=== PATIENT | female | born 1960 | race American Indian/Alaskan Native ===

== ENCOUNTER 2016-05-12 13:31 | Emergency (ER) | payer MEDICAID ==
[2016-05-12] MEDS ORDERED: ROBITUSSIN PO ONE (23:35)
[2016-05-12] MEDS ORDERED: ROBITUSSIN AC PO ONE (23:36)
[2016-05-12] MEDS ORDERED: MOTRIN PO ONE (23:36)
[2016-05-12] MEDS ORDERED: DELTASONE PO ONE (23:36)
[2016-05-12] MEDS ORDERED: DUONEB 0.5 MG-3 MG/3 ML SOLN IH ONE (23:37)
--- NOTE | 2016-05-13 01:41 | Emergency Department Report ---
- General Chief Complaint: Upper Respiratory Infection Stated Complaint: CONGESTED/COLD Time Seen by Provider: 05/12/16 23:13 Source: patient Mode of arrival: Ambulatory Limitations: No Limitations - History of Present Illness Initial Comments: 55-year-old female past medical history denies presents with complaint of 2 months of dry cough. Denies fever or chills no lower extremity swelling no dyspnea on exertion denies any chest pain. Denies any recent travel no pleuritic chest pain whatsoever, denies any nocturnal dyspnea. States she has tried [id number] cold medicines with minimal relief of her cough. MD Complaint: cough Onset/Timin -: month(s) Severity: moderate Associated Symptoms: denies other symptoms Treatments Prior to Arrival: "cold medicine" - Related Data Home Medications Medication Instructions Recorded Confirmed Last Taken Zoloft 12/11/14 12/11/14 07/14/15 traZODone 12/11/14 12/11/14 07/14/15 Previous Rx's Medication Instructions Recorded Last Taken Type ALBUTEROL Inhaler [Proair] 1 puff IH Q4H PRN #1 inha 05/13/16 Unknown Rx Azithromycin [Zithromax Z-BRADFORD] 250 mg PO QDAY #6 tablet 05/13/16 Unknown Rx guaiFENesin/CODEINE [Robitussin AC] 5 ml PO Q8H PRN #1 oral.liqd 05/13/16 Unknown Rx predniSONE [Deltasone] 40 mg PO QDAY #10 tab 05/13/16 Unknown Rx Allergies Allergy/AdvReac Type Severity Reaction Status Date / Time No Known Allergies Allergy Unverified 12/11/14 10:38 ED Review of Systems ROS: Stated complaint: CONGESTED/COLD Other details as noted in HPI Constitutional: denies: chills, fever Eyes: denies: eye pain, eye discharge, vision change ENT: denies: ear pain, throat pain Respiratory: cough. denies: shortness of breath, wheezing Cardiovascular: denies: chest pain, palpitations Endocrine: no symptoms reported Gastrointestinal: denies: abdominal pain, nausea, diarrhea Genitourinary: denies: urgency, dysuria, discharge Musculoskeletal: denies: back pain, joint swelling, arthralgia Skin: denies: rash, lesions Neurological: denies: headache, weakness, paresthesias Psychiatric: denies: anxiety, depression Hematological/Lymphatic: denies: easy bleeding, easy bruising ED Past Medical Hx - Past Medical History Hx Hypertension: Yes (patient states she is not taking any medication for this) Hx Arthritis: Yes Hx Psychiatric Treatment: Yes (depression treated by [facility] in [place], [place]) Additional medical history: hepatitis B - Social History Smoking Status: Never Smoker Substance Use Type: None - Medications Home Medications: Home Medications Medication Instructions Recorded Confirmed Last Taken Type Zoloft 12/11/14 12/11/14 07/14/15 History traZODone 12/11/14 12/11/14 07/14/15 History ALBUTEROL Inhaler [Proair] 1 puff IH Q4H PRN #1 inha 05/13/16 Unknown Rx Azithromycin [Zithromax Z-BRADFORD] 250 mg PO QDAY #6 tablet 05/13/16 Unknown Rx guaiFENesin/CODEINE [Robitussin AC] 5 ml PO Q8H PRN #1 oral.liqd 05/13/16 Unknown Rx predniSONE [Deltasone] 40 mg PO QDAY #10 tab 05/13/16 Unknown Rx ED Physical Exam - General Limitations: No Limitations General appearance: alert, in no apparent distress - Head Head exam: Present: atraumatic, normocephalic - Eye Eye exam: Present: normal appearance, PERRL, EOMI - ENT ENT exam: Present: mucous membranes moist - Neck Neck exam: Present: normal inspection - Respiratory Respiratory exam: Present: normal lung sounds bilaterally. Absent: respiratory distress - Cardiovascular Cardiovascular Exam: Present: regular rate, normal rhythm. Absent: systolic murmur, diastolic murmur, rubs, gallop - GI/Abdominal GI/Abdominal exam: Present: soft, normal bowel sounds - Extremities Exam Extremities exam: Present: normal inspection - Back Exam Back exam: Present: normal inspection - Neurological Exam Neurological exam: Present: alert, oriented X3 - Psychiatric Psychiatric exam: Present: normal affect, normal mood - Skin Skin exam: Present: warm, dry, intact, normal color. Absent: rash ED Course Vital Signs 05/12/16 05/13/16 05/13/16 13:46 00:54 01:07 Temperature 98.6 F Pulse Rate 73 Pulse Rate [ 59 L Throughout] Respiratory 20 22 Rate Respiratory 16 Rate [ Throughout] Blood Pressure 146/76 Blood Pressure [Right] O2 Sat by Pulse 97 Oximetry 05/13/16 05/13/16 01:23 02:14 Temperature 97.9 F Pulse Rate 77 Pulse Rate [ 54 L Throughout] Respiratory 18 Rate Respiratory 16 Rate [ Throughout] Blood Pressure Blood Pressure 143/93 [Right] O2 Sat by Pulse 98 Oximetry ED Medical Decision Making - Medical Decision Making A/P: Bronchitis 1-Z-Bradford, pro-air inhaler, prednisone short course, guaifenesin-codeine short course 2-follow-up with primary care doctor 3-I advised patient to return to the ED if she develops any chest pain or palpitations associated with cough and/or any lower extremity swelling or dyspnea on exertion Critical care attestation.: If time is entered above; I have spent that time in minutes in the direct care of this critically ill patient, excluding procedure time. ED Disposition Clinical Impression: Bronchitis Disposition: DISCHARGED TO HOME OR SELFCARE Is pt being admited?: No Does the pt Need Aspirin: No Condition: Stable Instructions: Chronic Bronchitis (ED), Acute Bronchitis (ED) Prescriptions: predniSONE [Deltasone] 40 mg PO QDAY #10 tab ALBUTEROL Inhaler [Proair] 1 puff IH Q4H PRN #1 inha PRN Reason: Cough guaiFENesin/CODEINE [Robitussin AC] 5 ml PO Q8H PRN #1 oral.liqd PRN Reason: Cough Azithromycin [Zithromax Z-BRADFORD] 250 mg PO QDAY #6 tablet Referrals: PRIMARY MD TJ [Primary Care Provider] - 3-5 Days [facility] [Outside] - 3-5 Days TORSTEN LÓPEZ MD [Staff Physician] - 3-5 Days Time of Disposition: 01:46
[2016-05-13 02:15] VITALS: BP 143/93
--- NOTE | 2016-05-13 07:26 | XRay Report ---
CHEST 2 VIEWS INDICATION: Worsening cough. COMPARISON: 01/18/2009 FINDINGS: PA and lateral chest radiographs again demonstrate normal cardiomediastinal silhouette and slight aortic knob calcifications. New mild eventration/elevation of the right hemidiaphragm and slight bibasilar atelectasis. No pleural effusions or CHF. Unremarkable bones. CONCLUSION: No significant acute chest process with few incidental findings, as above. Thank you for the opportunity to participate in this patient's care.
== END 2016-05-13 02:13 | disposition home or self-care (01) ==
LOC: ED 13:31
DX: J40 Bronchitis, not specified as acute or chronic (principal); I10 Essential (primary) hypertension; M19.90 Unspecified osteoarthritis, unspecified site; F32.9 Major depressive disorder, single episode, unspecified; Z86.19 Personal history of other infectious and parasitic diseases
CPT/HCPCS: 71020; 94640; 99283; J7512

== ENCOUNTER 2016-06-02 11:48 | Outpatient (CLI) | payer MEDICAID ==
--- NOTE | 2016-06-02 12:47 | XRay Report ---
LEFT KNEE RADIOGRAPHS INDICATION: Left knee pain and swelling. COMPARISON: None similar. FINDINGS: AP, lateral and oblique left knee radiographs demonstrate intact articulation. Tibial spines and medial corner degenerative spurring. Slight suprapatellar effusion. CONCLUSION: Mild left knee degenerative changes without acute bony abnormality, as described. Thank you for the opportunity to participate in this patient's care.
== END 2016-06-02 11:49 | disposition home or self-care (01) ==
LOC: XRAY 11:48
PROVIDERS: ATTEND Internal Medicine
DX: M25.462 Effusion, left knee (principal)

== ENCOUNTER 2016-12-01 13:24 | Emergency (ER) | payer MEDICAID ==
--- NOTE | 2016-12-01 17:57 | Emergency Department Report ---
- General Chief complaint: Skin/Abscess/Foreign Body Stated complaint: SKIN PROBLEM Time Seen by Provider: 12/01/16 16:29 Source: patient Mode of arrival: Ambulatory Limitations: No Limitations - History of Present Illness Initial comments: 56F PMH Depression p/w c/o intermittent episodes of "heavy sweating with body odor" for several months MD complaint: other - Related Data Home Medications Medication Instructions Recorded Confirmed Last Taken Zoloft 12/11/14 12/11/14 07/14/15 [email or web address] 12/11/14 12/11/14 07/14/15 Previous Rx's Medication Instructions Recorded Last Taken Type ALBUTEROL Inhaler [Proair] 1 puff IH Q4H PRN #1 inha 05/13/16 Unknown Rx Azithromycin [Zithromax Z-BRADFORD] 250 mg PO QDAY #6 tablet 05/13/16 Unknown Rx guaiFENesin/CODEINE [Robitussin AC] 5 ml PO Q8H PRN #1 oral.liqd 05/13/16 Unknown Rx predniSONE [Deltasone] 40 mg PO QDAY #10 tab 05/13/16 Unknown Rx Allergies Allergy/AdvReac Type Severity Reaction Status Date / Time No Known Allergies Allergy Verified 12/01/16 13:33 Abscess Boil HPI - HPI Chief Complaint: Skin/Abscess/Foreign Body Stated Complaint: SKIN PROBLEM Time Seen by Provider: 12/01/16 16:29 Home Medications: Home Medications Medication Instructions Recorded Confirmed Last Taken Zoloft 12/11/14 12/11/14 07/14/15 traZODone 12/11/14 12/11/14 07/14/15 Previous Rx's Medication Instructions Recorded Last Taken Type ALBUTEROL Inhaler [Proair] 1 puff IH Q4H PRN #1 inha 05/13/16 Unknown Rx Azithromycin [Zithromax Z-BRADFORD] 250 mg PO QDAY #6 tablet 05/13/16 Unknown Rx guaiFENesin/CODEINE [Robitussin AC] 5 ml PO Q8H PRN #1 oral.liqd 05/13/16 Unknown Rx predniSONE [Deltasone] 40 mg PO QDAY #10 tab 05/13/16 Unknown Rx Allergies/Adverse Reactions: Allergies Allergy/AdvReac Type Severity Reaction Status Date / Time No Known Allergies Allergy Verified 12/01/16 13:33 ED Review of Systems ROS: Stated complaint: SKIN PROBLEM Other details as noted in HPI ED Past Medical Hx - Past Medical History Hx Hypertension: Yes (patient states she is not taking any medication for this) Hx Arthritis: Yes Hx Psychiatric Treatment: Yes (depression treated by [facility] in [place], [place]) Additional medical history: hepatitis B - Social History Smoking Status: Never Smoker Substance Use Type: None - Medications Home Medications: Home Medications Medication Instructions Recorded Confirmed Last Taken Type Zoloft 12/11/14 12/11/14 07/14/15 History traZODone 12/11/14 12/11/14 07/14/15 History ALBUTEROL Inhaler [Proair] 1 puff IH Q4H PRN #1 inha 05/13/16 Unknown Rx Azithromycin [Zithromax Z-BRADFORD] 250 mg PO QDAY #6 tablet 05/13/16 Unknown Rx guaiFENesin/CODEINE [Robitussin AC] 5 ml PO Q8H PRN #1 oral.liqd 05/13/16 Unknown Rx predniSONE [Deltasone] 40 mg PO QDAY #10 tab 05/13/16 Unknown Rx ED Physical Exam - General Limitations: No Limitations ED Course Vital Signs 12/01/16 13:33 Temperature 97.9 F Pulse Rate 71 Respiratory 16 Rate Blood Pressure 151/84 O2 Sat by Pulse 100 Oximetry ED Medical Decision Making - Lab Data Result diagrams: 12/01/16 18:15 12/01/16 18:15 - Medical Decision Making A/P: Complaint of sweating with body odor 1-CBC, TSH, free T4, BMP within normal limits 2-fingerstick glucose unremarkable 3-physical exam reveals no skin lesions 4-I discussed with patient that her intermittent episodes of sweating could possibly be associated with her use of Zoloft. When I referenced Zoloft side effects on up-to-date.Duable Chinese sweating was one of the more common side effects listed. I advised patient to follow up with her psychiatrist. Patient has no complaints of chest pain shortness of breath palpitations or weakness or abdominal pain associated directly with her episodes of sweating. Although patient is concerned that she has a foul body odor she does not have a foul body odor on physical examination . I advised patient to stay well-hydrated and to practice daily skin care 5- case discussed with Dr. Contreras Critical care attestation.: If time is entered above; I have spent that time in minutes in the direct care of this critically ill patient, excluding procedure time. ED Disposition Clinical Impression: Sweating, Body odor Disposition: - TO HOME OR SELFCARE Is pt being admited?: No Does the pt Need Aspirin: No Condition: Stable Referrals: [facility] [Provider Group] - 3-5 Days [facility] [Provider Group] - 3-5 Days Time of Disposition: 19:08
[2016-12-01 18:34] LABS: Basophils % (Auto) 0.4 % (0.0-1.8); Eosinophils % (Auto) 6.6 % (0.0-4.3); Hematocrit 38.4 % (30.3-42.9); Hemoglobin 12.4 gm/dl (10.1-14.3); Mean Corpuscular HGB Conc 32 % (30-34); Mean Corpuscular Hemoglobin 28 pg (28-32); Mean Corpuscular Volume 86 fl (79-97); Platelet Count 294 K/mm3 (140-440); Red Blood Count 4.46 M/mm3 (3.65-5.03); Red Cell Distribution Width 17.4 % (13.2-15.2); White Blood Count 6.9 K/mm3 (4.5-11.0)
[2016-12-01 18:51] LABS: Anion Gap 18 mmol/L; BUN/Creatinine Ratio 14.54; Blood Urea Nitrogen 16 mg/dL (7-17); Calcium 9.1 mg/dL (8.4-10.2); Carbon Dioxide 24 mmol/L (22-30); Chloride 98.9 mmol/L (98-107); Glucose 91 mg/dL (65-100); Potassium 3.8 mmol/L (3.6-5.0); Sodium 137 mmol/L (137-145)
[2016-12-01 19:24] VITALS: BP 139/76
== END 2016-12-01 19:24 | disposition home or self-care (01) ==
LOC: ED 13:24
DX: R61 Generalized hyperhidrosis (principal); I10 Essential (primary) hypertension; M19.90 Unspecified osteoarthritis, unspecified site; F32.9 Major depressive disorder, single episode, unspecified
CPT/HCPCS: 36415; 80048; 82962; 84439; 84443; 85025; 99283

== ENCOUNTER 2017-10-01 16:05 | Emergency (ER) | payer MEDICAID ==
[2017-10-01 16:13] VITALS: BP 132/78
[2017-10-01] MEDS ORDERED: FLEXERIL ONE (20:41)
[2017-10-01] MEDS ORDERED: ULTRAM ONE (20:41)
[2017-10-01] MEDS ORDERED: FLEXERIL PO ONE (20:44)
[2017-10-01] MEDS ORDERED: ULTRAM PO ONE (20:44)
--- NOTE | 2017-10-01 21:13 | Emergency Department Report ---
ED Back Pain/Injury HPI - General Chief Complaint: Back Pain/Injury Stated Complaint: BACK PAIN Time Seen by Provider: 10/01/17 20:58 Source: patient Limitations: No Limitations - History of Present Illness Initial Comments: pt is a 57 y/o aaf who presents for left lower back pain after bending over and picking up "heavy" box 4 hrs ago, describes pain as 4/10 burning aching soreness exacerbated by bending and twisting relieved by rest, there is no numbness notingling no saddlle numbness no weakness no loss or decrease in bowel or bladder function Complaint: back injury Onset/Timin -: hour(s) Similar Symptoms Previously: Yes Place: home Radiation: left leg Severity: moderate Severity scale (0 -10): 4 Quality: burning Consistency: constant Improves With: other (rest ) Worsens With: movement, other (bending twisting) Context: while lifting, turning/twisting Associated Symptoms: denies: weakness, numbness, difficulty walking, difficulty urinating, incontinence, fever/chills - Related Data Home Medications Medication Instructions Recorded Confirmed Last Taken Zoloft 12/11/14 12/11/14 07/14/15 traZODone 12/11/14 12/11/14 07/14/15 Previous Rx's Medication Instructions Recorded Last Taken Type ALBUTEROL Inhaler [Proair] 1 puff IH Q4H PRN #1 inha 05/13/16 Unknown Rx Azithromycin [Zithromax Z-BRADFORD] 250 mg PO QDAY #6 tablet 05/13/16 Unknown Rx guaiFENesin/CODEINE [Robitussin AC] 5 ml PO Q8H PRN #1 oral.liqd 05/13/16 Unknown Rx predniSONE [Deltasone] 40 mg PO QDAY #10 tab 05/13/16 Unknown Rx Cyclobenzaprine [Flexeril] 10 mg PO BID PRN #20 tablet 10/01/17 Unknown Rx Menthol/Camphor [[place] 1 applicatio TP TID PRN #1 tube 10/01/17 Unknown Rx Ointment] Naproxen 500 mg PO BID PRN #30 tablet 10/01/17 Unknown Rx Allergies Allergy/AdvReac Type Severity Reaction Status Date / Time No Known Allergies Allergy Verified 12/01/16 13:33 ED Review of Systems ROS: Stated complaint: BACK PAIN Other details as noted in HPI Constitutional: denies: chills, fever Eyes: denies: eye pain, eye discharge, vision change ENT: denies: ear pain, throat pain Respiratory: denies: cough, shortness of breath, wheezing Cardiovascular: denies: chest pain, palpitations Endocrine: no symptoms reported Gastrointestinal: denies: abdominal pain, nausea, diarrhea Genitourinary: denies: urgency, dysuria, discharge Musculoskeletal: back pain, arthralgia, myalgia Skin: denies: rash, lesions Neurological: denies: headache, weakness, paresthesias Psychiatric: denies: anxiety, depression Hematological/Lymphatic: denies: easy bleeding, easy bruising ED Past Medical Hx - Past Medical History Previous Medical History?: Yes Hx Hypertension: Yes (patient states she is not taking any medication for this) Hx Arthritis: Yes Hx Psychiatric Treatment: Yes (depression treated by [facility] in [place], [place]) Additional medical history: hepatitis B - Surgical History Past Surgical History?: No - Social History Smoking Status: Never Smoker Substance Use Type: None - Medications Home Medications: Home Medications Medication Instructions Recorded Confirmed Last Taken Type Zoloft 12/11/14 12/11/14 07/14/15 History traZODone 12/11/14 12/11/14 07/14/15 History ALBUTEROL Inhaler [Proair] 1 puff IH Q4H PRN #1 inha 05/13/16 Unknown Rx Azithromycin [Zithromax Z-BRADFORD] 250 mg PO QDAY #6 tablet 05/13/16 Unknown Rx guaiFENesin/CODEINE [Robitussin AC] 5 ml PO Q8H PRN #1 oral.liqd 05/13/16 Unknown Rx predniSONE [Deltasone] 40 mg PO QDAY #10 tab 05/13/16 Unknown Rx Cyclobenzaprine [Flexeril] 10 mg PO BID PRN #20 tablet 10/01/17 Unknown Rx Menthol/Camphor [[place] 1 applicatio TP TID PRN #1 tube 10/01/17 Unknown Rx Ointment] Naproxen 500 mg PO BID PRN #30 tablet 10/01/17 Unknown Rx ED Physical Exam - General Limitations: No Limitations General appearance: alert, in no apparent distress - Head Head exam: Present: atraumatic, normocephalic - Eye Eye exam: Present: normal appearance - ENT ENT exam: Present: mucous membranes moist - Neck Neck exam: Present: normal inspection - Respiratory Respiratory exam: Present: normal lung sounds bilaterally. Absent: respiratory distress - Cardiovascular Cardiovascular Exam: Present: regular rate, normal rhythm. Absent: systolic murmur, diastolic murmur, rubs, gallop - GI/Abdominal GI/Abdominal exam: Present: soft, normal bowel sounds - Rectal Rectal exam: Present: deferred - Extremities Exam Extremities exam: Present: normal inspection, full ROM. Absent: tenderness - Back Exam Back exam: Present: tenderness (left lateral lumbar muscle pain to deep palpation), muscle spasm, paraspinal tenderness. Absent: CVA tenderness (R), CVA tenderness (L), vertebral tenderness, rash noted - Expanded Back Exam Expanded Back exam: Absent: saddle anesthesia Back exam: Positive Straight Leg Raise: Left, Negative Straight Leg Raising: Right - Neurological Exam Neurological exam: Present: alert, oriented X3, CN II-XII intact, normal gait, reflexes normal - Expanded Neurological Exam Expanded Patient oriented to: Present: person, place, time Speech: Present: fluid speech Cranial nerves: EOM's Intact: Normal, Gag Reflex: Normal, Tongue Deviation: Normal, Nystagmus: Normal, Facial Sensation: Normal Cerebellar function: Finger to Nose: Normal, Heel to Dumont: Normal, Romberg: Normal Upper motor neuron: Alberto Neglect: Normal, Pronator Drift: Normal, Babinski Sign : Normal, Sensory Extinction: Normal Sensory exam: Upper Extremity Light Touch: Normal, Upper Extremity Pin Prick: Normal, Upper Extremity Temperature: Normal, UE 2 Point Discrimination: Normal, Lower Extremity Light Touch: Normal, Lower Extremity Pin Prick: Normal, Lower Extremity Temperature: Normal, LE 2 Point Discrimination: Normal Motor strength exam: RUE: 5, LUE: 5, RLE: 5, LLE: 5 DTR: bicep (R): 2+, bicep (L): 2+, tricep (R): 2+, tricep (L): 2+, knee (R): 2+ , knee (L): 2+, ankle (R): 2+, ankle (L): 2+ Best Eye Response (Dejon): (4) open spontaneously Best Motor Response (Cary): (6) obeys commands Best Verbal Response ([place]): (5) oriented [place] Total: 15 - Psychiatric Psychiatric exam: Present: normal affect - Skin Skin exam: Present: warm, dry, intact, normal color ED Course Vital Signs 10/01/17 16:09 Temperature 97.9 F Pulse Rate 76 Respiratory 20 Rate Blood Pressure 132/78 O2 Sat by Pulse 99 Oximetry ED Medical Decision Making - Medical Decision Making pain improved with nsaid and mucle relxant rom improved pt is ambulatory gait is steady no symptom of caudi equina, plan nsaids muscle relaxant tiger balm back exercises moist heat therapy follow up with pcp in 2-3 days, pt verbalized agreement and understanding of same. pt for dc to home in stable condition at this time. Critical care attestation.: If time is entered above; I have spent that time in minutes in the direct care of this critically ill patient, excluding procedure time. ED Disposition Clinical Impression: Lumbar spine strain Qualifiers: Encounter type: initial encounter Qualified Code(s): S39.012A - Strain of muscle, fascia and tendon of lower back, initial encounter Disposition: DC-01 TO HOME OR SELFCARE Is pt being admited?: No Does the pt Need Aspirin: No Condition: Good Instructions: Muscle Strain (ED), Low Back Strain (ED), Core Strengthening Exercises (GEN) Prescriptions: Cyclobenzaprine [Flexeril] 10 mg PO BID PRN #20 tablet PRN Reason: Muscle Spasm Menthol/Camphor [[place] Ointment] 1 applicatio TP TID PRN #1 tube PRN Reason: Pain Naproxen 500 mg PO BID PRN #30 tablet PRN Reason: Pain , Severe (7-10) Referrals: PRIMARY CARE, [Primary Care Provider] - 3-5 Days SAMIRA KAUFMAN MD [Staff Physician] - 3-5 Days Forms: Work/School Release Form(ED) Time of Disposition: 21:18
== END 2017-10-01 21:20 | disposition home or self-care (01) ==
LOC: ED 16:05
DX: S39.012A Strain of muscle, fascia and tendon of lower back, initial encounter (principal); I10 Essential (primary) hypertension; X50.0XXA Overexertion from strenuous movement or load, initial encounter; Y93.89 Activity, other specified; Y92.89 Other specified places as the place of occurrence of the external cause; Y99.8 Other external cause status
CPT/HCPCS: 99282

== ENCOUNTER 2018-09-30 14:26 | Outpatient (CLI) | payer MEDICAID ==
--- NOTE | 2018-09-30 15:19 | Mammography Report ---
BILATERAL DIGITAL SCREENING MAMMOGRAM with CAD: 09/30/18 14:26:00 CLINICAL: Routine screening. COMPARISON:02/06/15 FINDINGS: The breasts are almost entirely fatty. No mass, architectural distortion or suspicious calcifications. IMPRESSION: No mammographic evidence of malignancy. BI-RADS CATEGORY: 1 - - Negative RECOMMENDATION: Routine mammographic screening in one year. COMMENT: Patient follow-up letters are generated by our [employer] application.
== END 2018-09-30 14:27 | disposition home or self-care (01) ==
LOC: MAMMO 14:26
PROVIDERS: ATTEND Internal Medicine
DX: Z12.31 Encounter for screening mammogram for malignant neoplasm of breast (principal); I10 Essential (primary) hypertension; E78.00 Pure hypercholesterolemia, unspecified; E66.9 Obesity, unspecified
CPT/HCPCS: 77067

== ENCOUNTER 2018-10-10 09:05 | Emergency (ER) | payer MEDICAID ==
[2018-10-10 09:58] LABS: Basophils % (Auto) 0.5 % (0.0-1.8); Eosinophils # (Auto) 0.3 K/mm3 (0.0-0.4); Hemoglobin 11.7 gm/dl (10.1-14.3); Lymphocytes # (Auto) 2.5 K/mm3 (1.2-5.4); Lymphocytes % (Auto) 44.5 % (13.4-35.0); Mean Corpuscular HGB Conc 33 % (30-34); Mean Corpuscular Volume 86 fl (79-97); Monocytes # (Auto) 0.7 K/mm3 (0.0-0.8); Monocytes % (Auto) 11.7 % (0.0-7.3); Platelet Count 278 K/mm3 (140-440); Red Blood Count 4.16 M/mm3 (3.65-5.03); Red Cell Distribution Width 15.6 % (13.2-15.2)
--- NOTE | 2018-10-10 10:17 | Emergency Department Report ---
ED Chest Pain HPI - General Chief Complaint: Chest Pain Stated Complaint: CHEST PAIN/BACK PAIN Time Seen by Provider: 10/10/18 09:57 Source: patient Mode of arrival: Ambulatory Limitations: No Limitations - History of Present Illness Initial Comments: 58-year-old -[place] female presents to the emergency department from home with complaint of a one-week history of chest pain, dizziness, shortness of breath. The chest pain is midsternal left-sided. The back pain is the upper middle back the patient is unsure whether it radiates from her chest or is a separate entity. She does admit to some shortness of breath, mild diaphoresis. She has not taken anything for her symptoms prior to presentation. She has a past medical history of high cholesterol. She denies any tobacco or illicit drug use. No recent travel or sick contacts at home. No significant family history of early cardiac disease. - Related Data Home Medications Medication Instructions Recorded Confirmed Last Taken Zoloft 12/11/14 12/11/14 07/14/15 traZODone 12/11/14 12/11/14 07/14/15 Previous Rx's Medication Instructions Recorded Last Taken Type ALBUTEROL Inhaler (OR & NICU) 1 puff IH Q4H PRN #1 inha 05/13/16 Unknown Rx [Proair] Azithromycin [Zithromax Z-BRADFORD] 250 mg PO QDAY #6 tablet 05/13/16 Unknown Rx guaiFENesin/CODEINE [Robitussin AC] 5 ml PO Q8H PRN #1 oral.liqd 05/13/16 Unknown Rx predniSONE [Deltasone] 40 mg PO QDAY #10 tab 05/13/16 Unknown Rx Cyclobenzaprine [Flexeril] 10 mg PO BID PRN #20 tablet 10/01/17 Unknown Rx Menthol/Camphor [[facility] [place] 1 applicatio TP TID PRN #1 tube 10/01/17 Unknown Rx Ointment] Naproxen 500 mg PO BID PRN #30 tablet 10/01/17 Unknown Rx Allergies Allergy/AdvReac Type Severity Reaction Status Date / Time No Known Allergies Allergy Verified 10/10/18 09:16 Heart Score - HEART Score History: Slightly suspicious EKG: Normal Age: 45-65 Risk factors: 1-2 risk factors Troponin: < normal limit HEART Score: 2 - Critical Actions Critical Actions: 0-3 pts:0.9-1.7%risk of adverse cardiac event.Candidate for discharge ED Review of Systems ROS: Stated complaint: CHEST PAIN/BACK PAIN Other details as noted in HPI Comment: All other systems reviewed and negative Constitutional: diaphoresis. denies: chills, fever Eyes: denies: eye pain, vision change ENT: denies: ear pain, throat pain Respiratory: shortness of breath. denies: cough Cardiovascular: chest pain. denies: palpitations Gastrointestinal: denies: abdominal pain, vomiting Genitourinary: denies: dysuria, discharge Musculoskeletal: back pain. denies: arthralgia Skin: denies: rash, lesions Neurological: other (dizziness). denies: headache ED Past Medical Hx - Past Medical History Previous Medical History?: Yes Hx Hypertension: Yes (patient states she is not taking any medication for this) Hx Arthritis: Yes Hx Psychiatric Treatment: Yes (depression treated by [facility] in [place], [place]) Additional medical history: hepatitis B - Social History Smoking Status: Never Smoker Substance Use Type: Alcohol - Medications Home Medications: Home Medications Medication Instructions Recorded Confirmed Last Taken Type Zoloft 12/11/14 12/11/14 07/14/15 History traZODone 12/11/14 12/11/14 07/14/15 History ALBUTEROL Inhaler (OR & NICU) 1 puff IH Q4H PRN #1 inha 05/13/16 Unknown Rx [Proair] Azithromycin [Zithromax Z-BRADFORD] 250 mg PO QDAY #6 tablet 05/13/16 Unknown Rx guaiFENesin/CODEINE [Robitussin AC] 5 ml PO Q8H PRN #1 oral.liqd 05/13/16 Unknown Rx predniSONE [Deltasone] 40 mg PO QDAY #10 tab 05/13/16 Unknown Rx Cyclobenzaprine [Flexeril] 10 mg PO BID PRN #20 tablet 10/01/17 Unknown Rx Menthol/Camphor [[facility] [place] 1 applicatio TP TID PRN #1 tube 10/01/17 Unknown Rx Ointment] Naproxen 500 mg PO BID PRN #30 tablet 10/01/17 Unknown Rx ED Physical Exam - General Limitations: No Limitations - Other Other exam information: GENERAL: The patient is well-developed well-nourished. HENT: Normocephalic. Atraumatic. Patient has moist mucous membranes. EYES: Extraocular motions are intact. Pupils equal reactive to light bilaterally. NECK: Supple. Trachea is midline. CHEST/LUNGS: Clear to auscultation. There is no respiratory distress noted. HEART/CARDIOVASCULAR: Regular. There is no tachycardia. There is no murmur. ABDOMEN: Abdomen is soft, nontender. Patient has normal bowel sounds. There is no abdominal distention. SKIN: Very mild pitting edema bilateral lower extremities. NEURO: The patient is awake, alert, and oriented. The patient is cooperative. The patient has no focal neurologic deficits. The patient has normal speech. MUSCULOSKELETAL: There is no tenderness or deformity. There is no evidence of acute injury. ED Course Vital Signs 10/10/18 10/10/18 10/10/18 09:16 10:13 10:15 Temperature 98.8 F Pulse Rate 66 59 L Respiratory 16 18 14 Rate Blood Pressure 137/65 Blood Pressure 108/57 [Left] O2 Sat by Pulse 97 99 Oximetry 10/10/18 10/10/18 10/10/18 11:00 12:01 13:00 Temperature Pulse Rate 54 L 54 L 50 L Respiratory 17 18 16 Rate Blood Pressure 109/64 108/57 124/62 Blood Pressure [Left] O2 Sat by Pulse 99 100 99 Oximetry 10/10/18 10/10/18 14:00 14:30 Temperature Pulse Rate 60 Respiratory 14 Rate Blood Pressure 124/62 Blood Pressure 104/47 [Left] O2 Sat by Pulse 100 98 Oximetry CADEN score - Caden Score Age > 65: (0) No Aspirin use within the Past 7 Days: (0) No 3 or more CAD Risk Factors: (0) No 2 or more Angina events in past 24 hrs: (1) Yes Known CAD with more than 50% Stenosis: (0) No Elevated Cardiac Markers: (0) No ST Deviation Greater than 0.5mm: (0) No CADEN Score: 1 ED Medical Decision Making - Lab Data Result diagrams: 10/10/18 09:29 10/10/18 09:29 - EKG Data -: EKG Interpreted by [place] EKG shows normal: sinus rhythm, axis, intervals, QRS complexes, ST-T waves Rate: normal - EKG Data When compared to previous EKG there are: previous EKG unavailable Interpretation: normal EKG - Radiology Data Radiology results: report reviewed, image reviewed interpreted by me: Chest x-ray does not show any acute process. There are no pleural effusions, o bvious pneumonia and there is no pneumothorax. CTA CHEST: HISTORY: chest pain. COMPARISON: none. TECHNIQUE: Helical CT in 1.25mm intervals following IV contrast. Pulmonary embolus protocol. Sagittal and coronal reformatted images. Rotational MIP images. FINDINGS: Contrast bolus is satisfactory. No pulmonary embolus is identified. Thyroid gland: Normal. Tracheobronchial tree: Normal. Esophagus: Normal. Heart: Normal. Pericardium: Normal. Mediastinum: Small hiatal hernia is noted. Lung Roger: Normal. Pleural Spaces: Normal. Musculoskeletal: Normal. IMPRESSION: No evidence for pulmonary embolus. Small hiatal hernia. Unremarkable CT chest with contrast. Transcribed By: TTR Dictated By: HILL RICE JR, MD Electronically Authenticated By: HILL RICE JR, MD Signed Date/Time: 10/10/18 7901 - Medical Decision Making This patient presents to the emergency department with a one-week history of some chest pain and SOB. EKG did not show any signs of STEMI. The patient's labs have been mostly unremarkable including negative troponins x 2, but she did have an elevated and equivocal d-dimer. For this reason a CT angiography of the chest was done that did not show any signs of any pulmonary embolism, dissection, aneurysm, or any other acute process. It did show a small hiatal hernia. The patient was reevaluated multiple times for multiple hours and is feeling improved. She denies any current chest pain or shortness of breath and is asking for discharge home. She is low on the Heart score criteria and low CADEN score. She will be given a referral for cardiology. She will return to the ER with any worsening of her symptoms, return of her chest pain, or with any acute distress. - Differential Diagnosis IN, PE, Costochondritis, Hiatal Hernia Critical Care Time: No Critical care attestation.: If time is entered above; I have spent that time in minutes in the direct care of this critically ill patient, excluding procedure time. ED Disposition Clinical Impression: Hiatal hernia Chest pain Qualifiers: Chest pain type: unspecified Qualified Code(s): R07.9 - Chest pain, unspecified Disposition: DC-01 TO HOME OR SELFCARE Is pt being admited?: No Condition: Stable Instructions: Chest Pain (ED), Hiatal Hernia (ED) Additional Instructions: Please follow-up with your primary care physician in the next few days. I have given you a referral for a local trailer driver, Dr. Hung, to follow up regarding your chest pains. I have also given you a referral for Dr Rice, a local Conference Services Director, to follow up about your small hiatal hernia. Return to the emergency department with any return of her chest pain, worsening of your symptoms, or if any acute distress. Referrals: TORSTEN HUNG MD [Staff Physician] - 3-5 Days CHRISTINA RICE MD [Staff Physician] - 3-5 Days [facility] [Outside] - 3-5 Days Time of Disposition: 15:52
--- NOTE | 2018-10-10 10:19 | XRay Report ---
ROUTINE CHEST, TWO VIEWS: HISTORY: chest pain. The trachea, heart, mediastinal contour, lung menchaca and bony thorax are unremarkable. IMPRESSION: Unremarkable chest x-ray.
[2018-10-10 10:24] LABS: Alanine Aminotransferase 15 units/L (7-56); Albumin 3.9 g/dL (3.9-5); BUN/Creatinine Ratio 21; Blood Urea Nitrogen 19 mg/dL (7-17); Calcium 9.1 mg/dL (8.4-10.2); Hemolysis Index 3
[2018-10-10] MEDS ORDERED: BABY ASPIRIN PO ONE (10:35)
[2018-10-10 14:37] VITALS: BP 104/47
--- NOTE | 2018-10-10 14:57 | Cat Scan Report ---
CTA CHEST: HISTORY: chest pain. COMPARISON: none. TECHNIQUE: Helical CT in 1.25mm intervals following IV contrast. Pulmonary embolus protocol. Sagittal and coronal reformatted images. Rotational MIP images. FINDINGS: Contrast bolus is satisfactory. No pulmonary embolus is identified. Thyroid gland: Normal. Tracheobronchial tree: Normal. Esophagus: Normal. Heart: Normal. Pericardium: Normal. Mediastinum: Small hiatal hernia is noted. Lung Roger: Normal. Pleural Spaces: Normal. Musculoskeletal: Normal. IMPRESSION: No evidence for pulmonary embolus. Small hiatal hernia. Unremarkable CT chest with contrast.
== END 2018-10-10 16:21 | disposition home or self-care (01) ==
LOC: ED 09:05
DX: K44.9 Diaphragmatic hernia without obstruction or gangrene (principal); I10 Essential (primary) hypertension; M19.90 Unspecified osteoarthritis, unspecified site; Z79.899 Other long term (current) drug therapy
CPT/HCPCS: 36415; 71046; 71275; 80048; 80053; 83880; 84484; 85025; 85379; 93005; 93010; 99285; Q9967

== ENCOUNTER 2019-05-13 17:47 | Emergency (ER) | payer MEDICAID ==
--- NOTE | 2019-05-13 18:12 | Event Note ---
ED Screening Note Date of service: 05/13/19 Time: 18:10 ED Screening Note: Pt complains of hematochezia and abdominal pain x last night denies hx of GI bleed This initial assessment/diagnostic orders/clinical plan/treatment(s) is/are subject to change based on patients health status, clinical progression and re- assessment by fellow clinical providers in the ED. Further treatment and workup at subsequent clinical providers discretion. Patient/guardian urged not to elope from the ED as their condition may be serious if not clinically assessed and managed. Initial orders include: labs CT
[2019-05-13 19:02] LABS: Basophils # (Auto) 0.1 K/mm3 (0.0-0.1); Basophils % (Auto) 0.8 % (0.0-1.8); Eosinophils # (Auto) 0.5 K/mm3 (0.0-0.4); Eosinophils % (Auto) 7.6 % (0.0-4.3); Hematocrit 34.1 % (30.3-42.9); Hemoglobin 11.3 gm/dl (10.1-14.3); Lymphocytes # (Auto) 2.4 K/mm3 (1.2-5.4); Mean Corpuscular HGB Conc 33 % (30-34); Mean Corpuscular Volume 88 fl (79-97); Monocytes # (Auto) 0.6 K/mm3 (0.0-0.8); Monocytes % (Auto) 9.3 % (0.0-7.3); Platelet Count 280 K/mm3 (140-440); Red Blood Count 3.89 M/mm3 (3.65-5.03)
[2019-05-13 19:09] LABS: INR 0.96 (0.87-1.13)
[2019-05-13 19:10] LABS: Partial Thromboplastin Time 32.9 Sec. (24.2-36.6)
[2019-05-13 19:24] LABS: Alanine Aminotransferase 10 units/L (7-56); Albumin 3.6 g/dL (3.9-5); BUN/Creatinine Ratio 10; Blood Urea Nitrogen 11 mg/dL (7-17); Calcium 9.5 mg/dL (8.4-10.2); Hemolysis Index 10
[2019-05-13 21:33] LABS: Bilirubin,Urine NEG (Negative); Blood,Urine SM (Negative); Color,Urine Yellow (Yellow); Mucus,Urine FEW /HPF; Protein,Urine <15 mg/dL mg/dL (Negative); Urobilinogen,Urine < 2.0 mg/dL (<2.0)
--- NOTE | 2019-05-14 00:57 | Cat Scan Report ---
CT ABDOMEN AND PELVIS WITH IV CONTRAST INDICATION: Generalized abdominal pain. TECHNIQUE: Following the administration of intravenous contrast, multiple axial CT images of the abdo men and pelvis were acquired. Sagittal and coronal reformats were obtained. All CT performed at this facility utilize dose reduction techniques including automated exposure control, iterative reconstru ction and weight based dosing when appropriate to reduce patient radiation dose to as low as reasonab ly achievable. COMPARISON: None FINDINGS: Limited imaging of the bilateral lung bases demonstrates no acute abnormality. Abdomen: There is moderate distention of the stomach with food contents. There is a small hiatal malgorzata ia. The liver, gallbladder, spleen, pancreas, bilateral adrenal glands and bilateral kidneys show no evidence of acute abnormality. There is no evidence of bowel obstruction or free fluid. The appendix is visualized and appears normal. Pelvis: There is a small left-sided inguinal hernia containing a small portion of the small bowel. No definitive localized inflammatory changes are identified. The urinary bladder and uterus appear with in normal limits. No free pelvic fluid is identified. Bones and Soft Tissues: Evaluation of bony structures demonstrates no evidence of acute bony abnormal ity. Evaluation of soft tissue structures demonstrate no acute soft tissue abnormality. IMPRESSION: 1. Left inguinal hernia containing a small amount of small bowel. No localized inflammatory changes a re identified, but please correlate with patient's clinical circumstances. 2. Moderate distention of the stomach with food contents. Signer Name: Zoya Arana MD Signed: 05/14/2019 12:52 AM Workstation Name: [id number]
[2019-05-14 01:58] VITALS: BP 128/78
--- NOTE | 2019-05-14 02:07 | Emergency Department Report ---
ED GI Bleed HPI - General Chief complaint: Weakness Stated complaint: BLEEDING Time Seen by Provider: 05/13/19 18:09 Source: patient Mode of arrival: Ambulatory Limitations: No Limitations - History of Present Illness Initial comments: Patient is a 58-year-old [place] female who states she had 2 episodes of bright red blood per rectum over the last 2 days MD complaint: gross hematochezia -: days(s) (2) Location: diffuse Radiation: none Severity scale (0 -10): 2 Quality: cramping Consistency: constant Improves with: none Worsens with: none Associated Symptoms: weakness. denies: nausea, vomiting, epistaxis, headaches, loss of appetite, malaise, easy bruising, rash, shortness of breath, syncope - Related Data Home Medications Medication Instructions Recorded Confirmed Last Taken Zoloft 12/11/14 12/11/14 07/14/15 traZODone 12/11/14 12/11/14 07/14/15 Previous Rx's Medication Instructions Recorded Last Taken Type ALBUTEROL Inhaler (OR & NICU) 1 puff IH Q4H PRN #1 inha 05/13/16 Unknown Rx [Proair] Azithromycin [Zithromax Z-BRADFORD] 250 mg PO QDAY #6 tablet 05/13/16 Unknown Rx guaiFENesin/CODEINE [Robitussin AC] 5 ml PO Q8H PRN #1 oral.liqd 05/13/16 Unknown Rx predniSONE [Deltasone] 40 mg PO QDAY #10 tab 05/13/16 Unknown Rx Cyclobenzaprine [Flexeril] 10 mg PO BID PRN #20 tablet 10/01/17 Unknown Rx Menthol/Camphor [[place] 1 applicatio TP TID PRN #1 tube 10/01/17 Unknown Rx Ointment] Naproxen 500 mg PO BID PRN #30 tablet 10/01/17 Unknown Rx Hydrocortisone Acetate [Proctocort 30 mg RC BID #10 supp.rect 05/14/19 Unknown Rx SUPPOS] Allergies Allergy/AdvReac Type Severity Reaction Status Date / Time No Known Allergies Allergy Verified 10/10/18 09:16 ED Review of Systems ROS: Stated complaint: BLEEDING Other details as noted in HPI Comment: All other systems reviewed and negative ED Past Medical Hx - Past Medical History Previous Medical History?: Yes Hx Hypertension: Yes (patient states she is not taking any medication for this) Hx Arthritis: Yes Hx Psychiatric Treatment: Yes (depression treated by [facility] in [place], [place]) Additional medical history: hepatitis B - Surgical History Past Surgical History?: No - Social History Smoking Status: Never Smoker - Medications Home Medications: Home Medications Medication Instructions Recorded Confirmed Last Taken Type Zoloft 12/11/14 12/11/14 07/14/15 History traZODone 12/11/14 12/11/14 07/14/15 History ALBUTEROL Inhaler (OR & NICU) 1 puff IH Q4H PRN #1 inha 05/13/16 Unknown Rx [Proair] Azithromycin [Zithromax Z-BR[place]ORD] 250 mg PO QDAY #6 tablet 05/13/16 Unknown Rx guaiFENesin/CODEINE [Robitussin AC] 5 ml PO Q8H PRN #1 oral.liqd 05/13/16 Unknown Rx predniSONE [Deltasone] 40 mg PO QDAY #10 tab 05/13/16 Unknown Rx Cyclobenzaprine [Flexeril] 10 mg PO BID PRN #20 tablet 10/01/17 Unknown Rx Menthol/Camphor [[place] 1 applicatio TP TID PRN #1 tube 10/01/17 Unknown Rx Ointment] Naproxen 500 mg PO BID PRN #30 tablet 10/01/17 Unknown Rx Hydrocortisone Acetate [Proctocort 30 mg RC BID #10 supp.rect 05/14/19 Unknown Rx SUPPOS] ED Physical Exam - General Limitations: No Limitations General appearance: alert, in no apparent distress - Head Head exam: Present: atraumatic, normocephalic - Eye Eye exam: Present: normal appearance, PERRL, EOMI - ENT ENT exam: Present: mucous membranes moist - Neck Neck exam: Present: normal inspection - Respiratory Respiratory exam: Present: normal lung sounds bilaterally. Absent: respiratory distress, wheezes, rales, rhonchi - Cardiovascular Cardiovascular Exam: Present: regular rate, normal rhythm, normal heart sounds. Absent: systolic murmur, diastolic murmur, rubs, gallop - GI/Abdominal GI/Abdominal exam: Present: soft, normal bowel sounds. Absent: distended, tenderness, guarding, rebound - Extremities Exam Extremities exam: Present: normal inspection - Back Exam Back exam: Present: normal inspection - Neurological Exam Neurological exam: Present: alert, oriented X3 - Psychiatric Psychiatric exam: Present: normal affect, normal mood - Skin Skin exam: Present: warm, dry, intact, normal color. Absent: rash ED Course Vital Signs 05/13/19 05/13/19 05/14/19 18:10 23:56 01:57 Temperature 98.2 F 98 F Pulse Rate 60 64 Respiratory 16 18 18 Rate Blood Pressure 136/69 Blood Pressure 128/78 [Left] O2 Sat by Pulse 100 100 100 Oximetry ED Medical Decision Making - Lab Data Result diagrams: 05/13/19 18:45 05/13/19 18:45 Lab Results 05/13/19 05/13/19 05/13/19 Range/Units 18:45 18:45 18:45 WBC 6.4 (4.5-11.0) K/mm3 RBC 3.89 (3.65-5.03) M/mm3 Hgb 11.3 (10.1-14.3) gm/dl Hct 34.1 (30.3-42.9) % MCV 88 (79-97) fl MCH 29 (28-32) pg MCHC 33 (30-34) % RDW 16.0 H (13.2-15.2) % Plt Count 280 (140-440) K/mm3 Lymph % (Auto) 37.0 H (13.4-35.0) % [place] % (Auto) 9.3 H (0.0-7.3) % Eos % (Auto) 7.6 H (0.0-4.3) % Baso % (Auto) 0.8 (0.0-1.8) % Lymph # 2.4 (1.2-5.4) K/mm3 [place] # 0.6 (0.0-0.8) K/mm3 Eos # 0.5 H (0.0-0.4) K/mm3 Baso # 0.1 (0.0-0.1) K/mm3 Seg Neutrophils % 45.3 (40.0-70.0) % Seg Neutrophils # 2.9 (1.8-7.7) K/mm3 PT 12.9 (12.2-14.9) Sec. INR 0.96 (0.87-1.13) APTT 32.9 (24.2-36.6) Sec. Sodium 142 (137-145) mmol/L Potassium 4.4 (3.6-5.0) mmol/L Chloride 106.9 (98-107) mmol/L Carbon Dioxide 24 (22-30) mmol/L Anion Gap 16 mmol/L BUN 11 (7-17) mg/dL Creatinine 1.1 (0.7-1.2) mg/dL Estimated GFR > 60 ml/min BUN/Creatinine Ratio 10 % Glucose 90 (65-100) mg/dL Calcium 9.5 (8.4-10.2) mg/dL Total Bilirubin < 0.20 (0.1-1.2) mg/dL AST 14 (5-40) units/L ALT 10 (7-56) units/L Alkaline Phosphatase 67 (35-129) units/L Total Protein 6.4 (6.3-8.2) g/dL Albumin 3.6 L (3.9-5) g/dL Albumin/Globulin Ratio 1.3 % Urine Color (Yellow) Urine Turbidity (Clear) Urine pH (5.0-7.0) Ur Specific [place] (1.003-1.030) Urine Protein (Negative) mg/dL Urine Glucose (UA) (Negative) mg/dL Urine Ketones (Negative) mg/dL Urine Blood (Negative) Urine Nitrite (Negative) Urine Bilirubin (Negative) Urine Urobilinogen (<2.0) mg/dL Ur Leukocyte Esterase (Negative) Urine WBC (Auto) (0.0-6.0) /HPF Urine RBC (Auto) (0.0-6.0) /HPF U Epithel Cells (Auto) (0-13.0) /HPF Urine Mucus /HPF 05/13/19 Range/Units 21:15 WBC (4.5-11.0) K/mm3 RBC (3.65-5.03) M/mm3 Hgb (10.1-14.3) gm/dl Hct (30.3-42.9) % MCV (79-97) fl MCH (28-32) pg MCHC (30-34) % RDW (13.2-15.2) % Plt Count (140-440) K/mm3 Lymph % (Auto) (13.4-35.0) % [place] % (Auto) (0.0-7.3) % Eos % (Auto) (0.0-4.3) % Baso % (Auto) (0.0-1.8) % Lymph # (1.2-5.4) K/mm3 [place] # (0.0-0.8) K/mm3 Eos # (0.0-0.4) K/mm3 Baso # (0.0-0.1) K/mm3 Seg Neutrophils % (40.0-70.0) % Seg Neutrophils # (1.8-7.7) K/mm3 PT (12.2-14.9) Sec. INR (0.87-1.13) APTT (24.2-36.6) Sec. Sodium (137-145) mmol/L Potassium (3.6-5.0) mmol/L Chloride (98-107) mmol/L Carbon Dioxide (22-30) mmol/L Anion Gap mmol/L BUN (7-17) mg/dL Creatinine (0.7-1.2) mg/dL Estimated GFR ml/min BUN/Creatinine Ratio % Glucose (65-100) mg/dL Calcium (8.4-10.2) mg/dL Total Bilirubin (0.1-1.2) mg/dL AST (5-40) units/L ALT (7-56) units/L Alkaline Phosphatase (35-129) units/L Total Protein (6.3-8.2) g/dL Albumin (3.9-5) g/dL Albumin/Globulin Ratio % Urine Color Yellow (Yellow) Urine Turbidity Clear (Clear) Urine pH 5.0 (5.0-7.0) Ur Specific [place] 1.017 (1.003-1.030) Urine Protein <15 mg/dl (Negative) mg/dL Urine Glucose (UA) Neg (Negative) mg/dL Urine Ketones Neg (Negative) mg/dL Urine Blood Sm (Negative) Urine Nitrite Neg (Negative) Urine Bilirubin Neg (Negative) Urine Urobilinogen < 2.0 (<2.0) mg/dL Ur Leukocyte Esterase Neg (Negative) Urine WBC (Auto) 1.0 (0.0-6.0) /HPF Urine RBC (Auto) 3.0 (0.0-6.0) /HPF U Epithel Cells (Auto) 1.0 (0-13.0) /HPF Urine Mucus Few /HPF - Radiology Data Patient: PHU WARREN MR#: [id number] : 01/04/1968 Acct:[id number] Age/Sex: 51 / F ADM Date: 05/13/19 Loc: ED Attending Dr: Ordering Physician: JAISON CHAN MD Date of Service: 05/13/19 Procedure(s): CT angio chest Accession Number(s): [id number] cc: JAISON CHAN MD CTA CHEST WITH IV CONTRAST, 05/13/2019 INDICATION: Chest pain. Shortness of breath. TECHNIQUE: Axial CT images were obtained through the chest after injection of IV contrast. Coronal oblique 2- D reconstruction images were produced. 3 plane MIP reconstruction images were produced at an independent workstation. All CTs at this facility utilize dose reduction techniques including automated exposure control, iterative reconstruction and weight based dosing when appropriate to reduce patient radiation dose to as low as reasonable achievable. COMPARISON: Chest radiograph, 05/13/2019 FINDINGS: No central or segmental filling defects are identified within the pulmonary arteries to suggest pulmonary embolism. The heart is normal in size. The thoracic aorta is normal in caliber. Evaluation of the lung parenchyma demonstrates no focal airspace disease or pleural effusion. Limited imaging of the upper abdomen demonstrates no evidence of acute abnormality. Evaluation of bony structures demonstrates no evidence of acute bony abnormality.. IMPRESSION: 1. No evidence of pulmonary embolism or acute parenchymal process. Signer Name: Zoya Arana MD Signed: 05/14/2019 12:30 AM Workstation Name: [id number] - Medical Decision Making Patient has had 2 episodes of bright red blood per rectum. CT is within normal limits. Patient's hemoglobin is stable. Patient being given Proctofoam suppository in case the patient has internal hemorrhoids but also will be given GI follow-up for possible colonoscopy. Critical care attestation.: If time is entered above; I have spent that time in minutes in the direct care of this critically ill patient, excluding procedure time. ED Disposition Clinical Impression: Lower GI bleed Disposition: DC-01 TO HOME OR SELFCARE Is pt being admited?: No Does the pt Need Aspirin: No Condition: Stable Instructions: Rectal Bleeding (ED) Referrals: [facility] [Provider Group] - 3-5 Days Time of Disposition: 02:07
== END 2019-05-14 02:11 | disposition home or self-care (01) ==
LOC: ED 17:47
DX: K92.2 Gastrointestinal hemorrhage, unspecified (principal); I10 Essential (primary) hypertension; F32.9 Major depressive disorder, single episode, unspecified; Z79.899 Other long term (current) drug therapy
CPT/HCPCS: 36415; 74177; 80053; 81001; 82271; 85025; 85610; 85730; 99284; Q9967